=== PATIENT | female | born 1960 | race Caucasian/White ===

== ENCOUNTER 2021-06-09 22:43 | Emergency (ER) | payer BC ==
[2021-06-09] MEDS ORDERED: Lidocaine 1% with EPINEPHrine 1:100,000 50 ML MDV SUBCUT STA (23:11)
[2021-06-09] MEDS ORDERED: Bacitracin Oint 1 GM U/D Packet TOP ONE (23:11)
[2021-06-09] MEDS ORDERED: Diphtheria,Pertussis(Acell),Tetanus Vaccine 0.5 ML Syringe IM ONE (23:11)
--- NOTE | 2021-06-09 23:14 | EDM.PDOC ---
ED HPI GENERAL MEDICAL PROBLEM - General Chief Complaint: Laceration Stated Complaint: R HAND THUMB CUT Time Seen by Provider: 06/09/21 23:11 Source of Information: Reports: Patient, RN Notes Reviewed History Limitations: Reports: No Limitations - History of Present Illness INITIAL COMMENTS - FREE TEXT/NARRATIVE: 61-year-old female presents emergency department day with a laceration to her thumb on her right hand she injured herself with a kitchen knife no functional complaints Right Finger-Thumb Pain Score (Numeric/FACES): 3 - Related Data Allergies Allergy/AdvReac Type Severity Reaction Status Date / Time latex Allergy Burning Verified 06/09/21 23:08 Home Meds: Home Meds NK [No Known Home Meds] 06/09/21 [History] Past Medical History HEENT History: Reports: Impaired Vision Respiratory History: Reports: Asthma [employer]ODUCT [employer]CTION [employer]ORDINATOR History: Reports: Musculoskeletal History: Reports: Fracture Neurological History: Reports: Concussion Endocrine/Metabolic History: Reports: Diabetes, Gestational Dermatologic History: Reports: Other (See Below) Other Dermatologic History: rosesea - Infectious Disease History Infectious Disease History: Reports: Chicken Pox, Herpes - Past Surgical History Female Surgical History: Reports: Section Social & Family History - Tobacco Use Tobacco Use Status *Q: Never Tobacco User - Recreational Drug Use Recreational Drug Use: No ED ROS GENERAL - Review of Systems Review Of Systems: See Below Skin: Reports: Wound ED EXAM, SKIN/RASH Exam: See Below Text/Narrative:: Examination of the right hand she has full range of motion all digits radial pulses +2 there is a 1 cm laceration dorsal surface of the of digit #1 in between the DIP and PIP joints ED SKIN PROCEDURES - Laceration/Wound Repair Right Digit - 1st (Thumb) Appearance: Subcutaneous, Linear Distal NVT: Neuro & Vascular Intact, No Tendon Injury Anesthetic Type: Local Local Anesthesia - Lidocaine (Xylocaine): 1% with EPI Local Anesthetic Volume: 2cc Skin Prep: Saline Saline Irrigation (cc's): 60 Exploration/Debridement/Repair: Wound Explored, In a Bloodless Field, Explored to Base Closed with: Sutures Lac/Wound length In cm: 1 Suture Size: 4-0 # of Sutures: 3 Suture Type: Interrupted Sterile Dressing Applied: Nurse Tetanus Status Addressed: Yes Complications: No Course - Vital Signs Last Recorded V/S: Last Vital Signs Temp 96.7 F L 06/09/21 23:01 Pulse 63 06/09/21 23:01 Resp 12 06/09/21 23:01 BP 125/79 06/09/21 23:01 Pulse Ox 97 06/09/21 23:01 - Orders/Labs/Meds Orders: Active Orders 24 hr Category Date Time Status Vaccines to be Administered [RC] PER UNIT ROUTINE Care 06/09/21 23:11 Ordered Meds: Medications Discontinued Medications Generic Name Dose Route Start Last Admin Trade Name Jaimee PRTracey Reason Stop Dose Admin Bacitracin 1 dose 06/09/21 23:11 06/09/21 23:16 Bacitracin Oint 1 Gm U/D Packet TOP 06/09/21 23:12 1 dose ONETIME ONE Administration Diphtheria/Tetanus/Acell Pertussis 0.5 ml 06/09/21 23:11 06/09/21 23:16 Diphtheria,Pertussis(Acell),Tetanus Vaccine 0.5 Ml Syringe IM 06/09/21 23:12 0.5 ml .ONCE ONE Administration Lidocaine/Epinephrine 20 ml 06/09/21 23:11 06/09/21 23:15 Lidocaine 1% With Epinephrine 1:100,000 50 Ml Mdv SUBCUT 06/09/21 23:12 20 ml NOW STA Administration Departure - Departure Time of Disposition: 23:25 Disposition: Home, Self-Care 01 Condition: Good Clinical Impression: Laceration of right thumb Qualifiers: Encounter type: initial encounter Damage to nail status: without damage Foreign body presence: without foreign body Qualified Code(s): S61.011A - Laceration without foreign body of right thumb without damage to nail, initial encounter - Discharge Information Instructions: Laceration Care, Adult Referrals: PCP,None [Primary Care Provider] - Forms: ED Department Discharge Additional Instructions: Suture removal in 10 days, follow-up with primary care or return to the emergency for suture removal follow wound care instructions Sepsis Event Note (ED) - Evaluation Sepsis Screening Result: No Definite Risk - Focused Exam Vital Signs: Vital Signs Temp Pulse Resp BP Pulse Ox 06/09/21 23:01 96.7 F L 63 12 125/79 97 06/09/21 22:58 96.7 F L 63 12 125/79 97 - My Orders Last 24 Hours: My Active Orders 06/09/21 23:11 Vaccines to be Administered [RC] PER UNIT ROUTINE - Assessment/Plan Last 24 Hours: My Active Orders 06/09/21 23:11 Vaccines to be Administered [RC] PER UNIT ROUTINE Plan: Assessment Acuity = acute Site and laterality = 1 cm laceration digit #1 right hand Etiology = trauma with a knife Manifestations = none Location of injury = Home Lab values = none Plan Suture removal in 10 days follow-up primary care return to the emergency This note was dictated using [employer] voice recognition software please call with any questions on syntax or grammar.
== END 2021-06-09 23:39 | disposition home or self-care (01) ==
LOC: JP.ED 22:43
DX: S61.011A Laceration without foreign body of right thumb without damage to nail, initial encounter (principal); Z91.040 Latex allergy status; Z23 Encounter for immunization; W26.0XXA Contact with knife, initial encounter; Y92.000 Kitchen of unspecified non-institutional (private) residence as the place of occurrence of the external cause
CPT/HCPCS: 12001; 90471; 90715; 99282-25